=== PATIENT | female | born 1995 | race Caucasian/White ===

== ENCOUNTER 2017-03-24 14:57 | Inpatient (IN) | payer OTHER ==
--- NOTE | 2017-03-24 15:43 | Non Stress Test Report ---
Non Stress Test Datetime Report Generated by CPN: 03/24/2017 15:43 DEMOGRAPHIC EGA NST: 39.1 INDICATION Indication for Study: Other Indication for Study (NST) Other: LC MONITORING Monitor Explained: Monitor Explained; Test Explained; Patient Verbalized Understanding Time on Monitor: 03/24/2017 15:15 Time off Monitor: 03/24/2017 15:37 Time off Monitor: 03/24/2017 15:37 NST Duration: 22 NST INTERVENTIONS NST Interventions: None Physician Notified NST: P Arriola CNM BABY A: [id number] BABY A Movement : Present Contraction Frequency : 2-4 FHR Baseline : 130 Accelerations : 15X15 Decelerations : None Variability : Moderate 6-25bpm NST Review: Meets Criteria for Reactive NST NST Review and Verified By : Meli Cooper RNC NST Results: Reactive NST REPORT Report Trigger: Send Report
[2017-03-24 15:47] LABS: APPEARANCE,URINE CLOUDY; BILIRUBIN,URINE NEGATIVE (NEGATIVE); COLOR,URINE YELLOW; GLUCOSE, URINE NEGATIVE (NEGATIVE); KETONES,URINE NEGATIVE (NEGATIVE); LEUKOCYTE ESTERASE,URINE MODERATE (NEGATIVE); NITRITE,URINE NEGATIVE (NEGATIVE); PROTEIN,URINE NEGATIVE (NEGATIVE); URINE SPECIFIC GRAVITY 1.014; UROBILINOGEN,URINE NEGATIVE mg/dL (<2.0)
[2017-03-24 16:09] LABS: URINE AMPHETAMINES SCREEN NEGATIVE; URINE BARBITURATES SCREEN NEGATIVE; URINE BENZODIAZEPINES SCREEN NEGATIVE; URINE COCAINE SCREEN NEGATIVE; URINE MARIJUANA (THC) SCREEN NEGATIVE; URINE METHADONE SCREEN NEGATIVE; URINE PHENCYCLIDINE SCREEN NEGATIVE
[2017-03-24] MEDS ORDERED: HYDROXYZINE PAMOATE 50 MG CAPSULE ONE (16:40)
[2017-03-24] MEDS ORDERED: HYDROXYZINE PAMOATE 50 MG CAPSULE PO ONE (16:43)
[2017-03-24] MEDS ORDERED: PENICILLIN G-K 5 MILLION UNIT VIAL ONE (20:04)
[2017-03-24] MEDS ORDERED: PROMETHAZINE HCL INJ 25 MG/1 ML VIAL IV ONE (20:32)
[2017-03-24] MEDS ORDERED: NALBUPHINE HCL INJ 10 MG/1 ML AMPULE INJ ONE (20:32)
[2017-03-24] MEDS ORDERED: NALBUPHINE HCL INJ 10 MG/1 ML AMPULE ONE (20:35)
[2017-03-24] MEDS ORDERED: PROMETHAZINE HCL INJ 25 MG/1 ML VIAL ONE (20:35)
[2017-03-24] MEDS ORDERED: RINGERS SOLUTION,LACTATED 1,000 ML IV PRN (23:15)
[2017-03-24] MEDS ORDERED: RINGERS SOLUTION,LACTATED 1,000 ML IV ONE (23:15)
[2017-03-25] MEDS ORDERED: PENICILLIN G POTASSIUM 5,000,000 UNIT in DEXTROSE 5%-WATER 100 ML IV ONE (00:05)
[2017-03-25] MEDS ORDERED: OXYTOCIN/NORMAL SALINE 20 UNIT/1,000 ML RTUINJ ONE (00:16)
[2017-03-25] MEDS ORDERED: LIDOCAINE 1% INJ-PF (10 MG/ML) 30 ML SDV ONE (00:16)
[2017-03-25] MEDS ORDERED: MISOPROSTOL 0.2 MG TABLET ONE (00:16)
[2017-03-25] MEDS ORDERED: PENICILLIN G-K 5 MILLION UNIT VIAL IV PRN (00:20)
[2017-03-25] MEDS ORDERED: EPHEDRINE SULFATE INJ 50 MG/1 ML AMPULE ONE (00:22)
[2017-03-25] MEDS ORDERED: FENTANYL CITRATE INJ/PF 100 MCG/2 ML AMPUL ONE (00:22)
[2017-03-25] MEDS ORDERED: PHENYLEPHRINE HCL INJ/PF 10 MG/1 ML SDV ONE (00:22)
[2017-03-25] MEDS ORDERED: BUPIVACAINE HCL 0.25 % INJ/PF (2.5 MG/1 ML) 30 ML VIAL ONE (00:23)
[2017-03-25] MEDS ORDERED: FENTANYL/BUPIVACAINE/NS/PF 200 MCG/100 ML RTUINJ EPI ONE (00:23)
[2017-03-25] MEDS ORDERED: EPHEDRINE SULFATE INJ 50 MG/1 ML AMPULE IV ONE (00:26)
[2017-03-25] MEDS ORDERED: BENZOIN/ALOE VERA/STORAX/TOLU TINCTURE 60 ML TP PRN (00:26)
[2017-03-25] MEDS ORDERED: EPHEDRINE SULFATE INJ 50 MG/1 ML AMPULE IV PRN (00:26)
[2017-03-25] MEDS ORDERED: BUPIVACAINE HCL 0.25 % INJ/PF (2.5 MG/1 ML) 30 ML VIAL INFIL ONE (00:26)
[2017-03-25 00:45] LABS: HEMATOCRIT 35.9 % (36.0-47.0); MEAN CORPUSCULAR HEMOGLOBIN 28.4 pg (27.0-33.4); MEAN CORPUSCULAR HGB CONC 33.4 g/dL (32.0-36.0); MEAN CORPUSCULAR VOLUME 85 fl (80-97); PLATELET COUNT 264 10^3/uL (150-450); RED BLOOD COUNT 4.23 10^6/uL (3.72-5.28); RED CELL DISTRIBUTION WIDTH 13.8 % (11.5-14.0); WHITE BLOOD COUNT 20.8 10^3/uL (4.0-10.5)
[2017-03-25] MEDS ORDERED: ACETAMINOPHEN 325 MG TABLET PO ONE (01:01)
[2017-03-25] MEDS ORDERED: ACETAMINOPHEN 325 MG TABLET ONE (01:03)
[2017-03-25 01:07] LABS: ABSOLUTE LYMPHOCYTES# (MANUAL) 1.2 10^3/uL (0.5-4.7); ABSOLUTE MONOCYTES # (MANUAL) 0.4 10^3/uL (0.1-1.4); ABSOLUTE NEUTROPHILS# (MANUAL) 19.1 10^3/uL (1.7-8.2); BAND NEUTROPHILS % (MANUAL) 1 % (3-5); BASOPHILS % (MANUAL) 0 % (0-2); EOSINOPHILS % (MANUAL) 0 % (0-6); LYMPHOCYTES % (MANUAL) 6 % (13-45); MONOCYTES % (MANUAL) 2 % (3-13); SEGMENTED NEUTROPHILS % (MAN) 91 % (42-78); TOTAL CELLS COUNTED 100
[2017-03-25 01:08] LABS: PLATELET COMMENT ADEQUATE; RBC MORPHOLOGY COMMENT NORMO-CYTIC/CHROMIC; TOXIC GRANULATION SLIGHT; TOXIC VACUOLATION PRESENT
[2017-03-25] MEDS ORDERED: PENICILLIN G-K 5 MILLION UNIT VIAL ONE ×2 (03:28→07:56)
[2017-03-25] MEDS: FENTANYL/BUPIVACAINE/NS/PF 200 MCG/100 ML RTUINJ EPI PRN ×2 (03:40→07:53)
[2017-03-25] MEDS: PENICILLIN G POTASSIUM 2,500,000 UNIT in DEXTROSE 5%-WATER 50 ML IV SCH ×2 (04:08→08:01)
[2017-03-25] MEDS ORDERED: OXYTOCIN/NORMAL SALINE 20 UNIT/1,000 ML RTUINJ IV PRN ×2 (08:01→10:34)
--- NOTE | 2017-03-25 08:09 | L&D Progress Notes ---
PROGRESS NOTES Datetime Report Generated by CPN: 03/25/2017 08:08 PROGRESS NOTE Impression: Reassuring Heart Rate Procedures: Artificial ROM; Sterile Vag Exam Plan: Continue Present Management; Augmentation Informed Consent Obtained: Induction of Labor Vital Signs : Reviewed Comment: Comfortable with epidural minimal cervical change AROM, clear Pitocin per protocol Continue pcn VAGINAL EXAM Dilatation: 3 Dilatation: 7 Effacement: 100 Effacement: 90 Station: -1 Station: 0 Contractions: irregular Contractions: irregular MEMBRANES Membranes: Intact Membranes: Ruptured Amniotic Fluid Color: Clear FETUS A FHR - Baseline: 120 Monitoring: External US Variability: Moderate 6-25bpm Accelerations: 15X15 Decelerations: None Estimated Weight (gm): 3400 Presentation: Vertex SIGNATURE SIGNATURE: [id number];[id number] SIGNATURE: [id number] Assignment: Jacquie Ghosh MD Signature: with User ID: [email or web address] : with User ID: [email or web address]
[2017-03-25] MEDS ORDERED: DIBUCAINE 1% OINTMENT 28 GM TP PRN (10:34)
[2017-03-25] MEDS ORDERED: ZOLPIDEM TARTRATE 5 MG TABLET PO PRN (10:34)
[2017-03-25] MEDS ORDERED: BENZOCAINE/MENTHOL AEROSOL SPRAY 56 ML TOP PRN (10:34)
[2017-03-25] MEDS ORDERED: ACETAMINOPHEN WITH CODEINE #3 TABLET PO PRN ×2 (10:34)
[2017-03-25] MEDS ORDERED: MEASLES,MUMPS&RUBELLA VACC/PF 0.5 ML VIAL SUBCUT PRN (10:34)
[2017-03-25] MEDS ORDERED: DIPH/PERTUSS(ACELL)/TETANUS VAC/PF 0.5 ML SYR (>=10YO) IM PRN (10:34)
--- NOTE | 2017-03-25 10:48 | Warning Signs in Babies ---
VOD Warning Signs Datetime Report Generated by [facility]: 03/25/2017 10:48 VOD#608 -Warning Signs in Babies: Viewed with Parent(s)/Family (03/25/2017 10:47:Raven Hernandes RN)
--- NOTE | 2017-03-25 12:23 | Delivery Summary ---
Del Sum A-C Datetime Report Generated by CPN: 03/25/2017 12:22 DELIVERY PERSONNEL DELIVERY PERSONNEL: [id number] Delivery Doctor:: Tracy Dove CNM Labor and Delivery Nurse:: Raven Hernandes RNmanager sales support Nurse:: YUE Mdarigal Nursery Nurse:: Torri Mena RN Talent Development Director/EQUIPMENT SERVICE ENGINEER: ST Leyla Talent Development Director/EQUIPMENT SERVICE ENGINEER: Linda Asencio CNA II MATERNAL INFORMATION Delivery Anesthesia: Epidural Medications After Delivery: Pitocin Bolus-Please Comment Meds After Delivery Comment: pitocin 20 units in 1000 ml NS bolusing after delivery of placenta as orderd Estimated Blood Loss (ml): 300 Maternal Complications: None Provider Comments: of viable male infant over intact perineum. Head delivered, loose nuchal noted, delivered through, shoulders and body followed with ease. with spontaneous cry and respirations, to maternal abdomen, cord clamped X2 after 2 min delay, cut free by pts mary. Spontaneous delivery of placenta via duarte mechanism, appears intact, 3 VC. superficial right labial laceration repaired as above. Hemostasis acheived with external fundal massage and IV pitocin. Mother and infant in stable condition, routine pp care. LABOR SUMMARY EDC: 03/30/2017 00:00 No. Babies in Womb: 1 Attempted: No Labor Anesthesia: Epidural LABOR INFORMATION Reason for Induction: Not Applicable Onset of Labor: 03/24/2017 19:25 Complete Dilatation: 03/25/2017 09:34 Oxytocin: Augmentation Group B Beta Strep: positive Antibiotics # of Doses: 3 Antibiotics Time of Last Dose: 0017/0410/0801 Name of Antibiotic Given: PCN Steroids Given: None Reason Steroids Not Administered: Not Applicable MEMBRANES Membranes Rupture Method: Artificial Rupture of Membranes: 03/25/2017 07:38 Length of Rupture (hr): 2.77 Amniotic Fluid Color: Clear Amniotic Fluid Amount: Small Amniotic Fluid Odor: Normal STAGES OF LABOR Stage 1 hr: 14 Stage 1 min: 9 Stage 2 hr: 0 Stage 2 min: 50 Stage 3 hr: 0 Stage 3 min: 3 Total Time in Labor hr: 15 Total Time in Labor min: 2 VAGINAL DELIVERY Episiotomy: None Laceration #1: Perineal Laceration Extension #1: N/A Laceration #2: None Other Laceration: superficial right labial Laceration Repair: Yes Laceration Repair Note: repaired with 2 single sutures of 3-0 chromic using epidural for anesthesia Sponge Count Correct: N/A Sharps Count Correct: N/A CSECTION DELIVERY Primary Indication: N/A Secondary Indication: N/A CSection Incidence: N/A Labor: N/A Elective: N/A CSection Incision: N/A BABY A INFORMATION Delivery Date/Time: 03/25/2017 10:24 Method of Delivery: Vaginal Born in Route : No : N/A Forceps: N/A Vacuum Extraction: N/A Shoulder Dystocia : No PRESENTATION/POSITION BABY A Presentation: Cephalic Cephalic Presentation: Vertex Vertex Position: Right Occipital Anterior Breech Presentation: N/A PLACENTA INFORMATION BABY A Placenta Delivery Time : 03/25/2017 10:27 Placenta Method of Delivery: Spontaneous Placenta Status: Delivered SCORES BABY A Heart Rate 1 min: >100 bpm Resp Effort 1 min: Good Cry Reflex Irritability 1 min: Cough or Sneeze or Pulls Away Muscle Tone 1 min: Active Motion Color 1 min: Body [place], Extremities Blue Resuscitation Effort 1 min: Tactile Stimulation SCORE 1 MIN: 9 Heart Rate 5 min: >100 bpm Resp Effort 5 min: Good Cry Reflex Irritability 5 min: Cough or Sneeze or Pulls Away Muscle Tone 5 min: Active Motion Color 5 min: Body [place], Extremities Blue Resuscitation Effort 5 min: N/A SCORE 5 MIN: 9 Resuscitation Effort 10 min: N/A INFANT INFORMATION BABY A Gestational Age at Delivery: 39.2 Gestational Status: Full Term- 39- 40.6 Weeks Outcome : Liveborn Condition : Stable Sex: Male IDENTIFICATION BABY A Verification Date/Time: 03/25/2017 11:05 ID Band Number: [id number] Mother's Name Verified: Yes RN Verifying Infant: R Cecilio RN, K Breezy RN WEIGHT/LENGTH BABY A Infant Birthweight (gm): 3920 Infant Weight (lb): 8 Infant Weight (oz): 10 Infant Length (in): 20.50 Infant Length (cm): 52.07 CORD INFORMATION BABY A No. Cord Vessels: 3 Nuchal Cord : Around Neck x1, Loose Cord Blood Taken: Yes-For Eval (Mom's Blood Type - or O+) Infant Suction: Mouth; Nose ASSESSMENT BABY A Complications: None Physical Findings at Delivery: Caput Succedaneum Infant Respirations: Appears Normal Skin to Skin: Yes Skin to Skin Time (min): 60 Cone Winder/ALS Called : No Infant Care By: Teena Mena RN Transferred To: Remains with Mother BABY B INFORMATION : N/A SIGNATURES Assignment: Jacquie Ghosh MD Signature: with User ID: Ole : with User ID: [email or web address]
--- NOTE | 2017-03-25 12:49 | Admission Physical ---
Datetime Report Generated by CPN: 03/25/2017 12:49 CURRENT ADMISSION Hx Assessment: The History has been Reviewed and is Current Chief Complaint: Uterine Contractions Indication for Induction: Other Indication for Induction: Term, Intrauterine ; Intact Membranes Indication for Induction- Other: term, gbs +, advance cervical dilation Admit Impression- Other: labor augmentation, prodromal labor Admit Plan: Admit to Unit; Initiate Labor Augmentation Protocol ALLERGIES Medication Allergies: No Medication Allergies: No Known Allergies (03/24/2017) Latex: No Latex Allergies OBSTETRICAL HISTORY EDC: 03/30/2017 00:00 : 1 Para: 0 Term: 0 : 0 SAB: 0 IAB: 0 Ectopic: 0 Livin Cesareans: 0 VBACs: 0 Multiple Births: 0 Gestational Diabetes: No Rh Sensitization: No Incompetent Cervix: No JAMIE: No Infertility: No ART Treatment: No Uterine Anomaly: No IUGR: No Hx Previous C/S: No Macrosomia: No Hx Loss/Stillborn: No PIH: No Hx : No Placenta Previa/Abruption: No Depression/PP Depression: No PTL/PROM: No Post Hemorrhage: No Current Procedures: Ultrasound; NST Obstetrical History Comments: G1: current SEE RECORDS Alcohol: No Marijuana : No Cocaine: No Other Illicit Drugs: No Cigarettes: Never Smoker. [id number] MEDICAL HISTORY Diabetes: No Blood Transfusion: No Pulmonary Disease (Asthma, TB): No Breast Disease: No Hypertension: No Machinist Helper Surgery: No Heart Disease: No Hosp/Surgery: Yes Autoimmune Disorder: No Anesthetic Complications: No Kidney Disease: No Abnormal Pap Smear: No Neuro/Epilepsy: No Psychiatric Disorders: No Other Medical Diseases: No Hepatitis/Liver Disease: No Significant Family History: No Varicosities/Phlebitis: No Trauma/Violence : No Thyroid Dysfunction: No Medical History Comments: tonsillectomy INFECTIOUS HISTORY Gonorrhea: No Genital Herpes: No Chlamydia: No Tuberculosis: No Syphilis: No Hepatitis: No HIV/AIDS Exposure: No Rash or Viral Illness: No HPV: No PHYSICAL EXAM General: Normal HEENT: Normal Neurologic: Normal Thyroid: Deferred Heart: Normal Lungs: Normal Breast: Normal Back: Normal Abdomen: Normal Genitourinary Exam: Normal Extremities: Normal DTRs: Normal Pelvic Type: Adequate Vital Signs: Reviewed VAGINAL EXAM Dilatation: 3 Dilatation: 7 Effacement: 100 Effacement: 90 Station: -1 Station: 0 Contraction Comments: irregular Contraction Comments: irregular MEMBRANES Membranes: Intact Membranes: Ruptured Amniotic Fluid Color: Clear FETUS A EGA: 39.2 Monitoring: External US FHR- Baseline: 120 Variability: Moderate 6-25bpm Accelerations: 15X15 Decelerations: None FHR Category: Category I Estimated Weight (gm): 3400 Presentation: Vertex Admit Comment: Pt presented with ctx, was given theraputic rest made change from 3-6. Will admit for labor augmentation. GBS +, pcn Pt may have epidural Uncomplicated . See hx. PLANS FOR LABOR AND DELIVERY Labor and Delivery: None Pain Management: Epidural Feeding Preference: Breast Benefit of Breast Feed Discussed: Yes Circumcision: No INFORMED CONSENT Informed Consent Obtained: Induction of Labor Assignment: Jacquie Ghosh MD Signature: with User ID: [email or web address] : with User ID: [email or web address]
[2017-03-25] MEDS ORDERED: INFLUENZA ADLT QUAD (36MOS+) 2017-18 VAC 0.5 ML SYR IM PRN (13:21)
[2017-03-25] MEDS: IBUPROFEN 800 MG TABLET PO SCH ×2 (14:48→22:59)
[2017-03-25] MEDS: DOCUSATE SODIUM 100 MG CAPSULE PO SCH (18:50)
[2017-03-25] MEDS: FERROUS SULFATE 325 MG TABLET PO SCH (18:51)
[2017-03-26] MEDS: IBUPROFEN 800 MG TABLET PO SCH ×3 (06:20→22:26)
[2017-03-26 07:27] LABS: HEMATOCRIT 28.8 % (36.0-47.0); MEAN CORPUSCULAR HEMOGLOBIN 28.9 pg (27.0-33.4); MEAN CORPUSCULAR HGB CONC 33.9 g/dL (32.0-36.0); MEAN CORPUSCULAR VOLUME 85 fl (80-97); PLATELET COUNT 214 10^3/uL (150-450); RED BLOOD COUNT 3.38 10^6/uL (3.72-5.28); RED CELL DISTRIBUTION WIDTH 14.4 % (11.5-14.0); WHITE BLOOD COUNT 15.2 10^3/uL (4.0-10.5)
[2017-03-26 07:32] LABS: HEMOGLOBIN 9.8 g/dL (12.0-15.5)
--- NOTE | 2017-03-26 09:14 | PDOC PROGRESS REPORT ---
Subjective-OB Subjective: Post Delivery Day: 1 23 year old. Denies any needs at this time, voiding without difficulty, state lochia is stable, pain well controlled, bonding with baby well. Physical Exam (OB) Vital Signs: Temp Pulse Resp BP Pulse Ox 96.6 F L 72 17 134/80 H 100 03/26/17 07:41 03/26/17 07:41 03/26/17 07:41 03/26/17 07:41 03/26/17 07:41 Intake & Output 03/25/17 03/26/17 03/27/17 06:59 06:59 06:59 Weight 89.2 kg - Lochia Lochia Amount: Scant < 10 ml Lochia Color: Rubra/Red - Abdomen Description: Soft, Flat Hernia Present: No Fundal Description: Firm, Midline Fundal Height: u/u - u/2 Objective-Diagnostic Laboratory: 03/26/17 06:58 03/26/17 06:58 WBC 15.2 H RBC 3.38 L Hgb 9.8 L D Hct 28.8 L MCV 85 MCH 28.9 MCHC 33.9 RDW 14.4 H Plt Count 214 Assessment and Plan(PN) - Assessment and Plan (1) Vaginal delivery Is this a current diagnosis for this admission?: Yes Plan: routine pp care (2) Acute blood loss anemia Is this a current diagnosis for this admission?: Yes Plan: ferrous sulfate increase dietary iron - Time Spent with Patient Time with patient: Less than 15 minutes Critical Time spent with patient: Less than 15 minutes Medications reviewed and adjusted accordingly: Yes - Disposition Anticipated Discharge: Home Within: within 24 hours
[2017-03-26] MEDS: PRENATAL VITAMIN W DHA CAPSULE PO SCH (10:28)
[2017-03-26] MEDS: DOCUSATE SODIUM 100 MG CAPSULE PO SCH ×2 (10:29→18:45)
[2017-03-26] MEDS: SENNOSIDES/DOCUSATE 8.6-50 MG 1 EACH TABLET PO SCH (10:29)
[2017-03-26] MEDS: FERROUS SULFATE 325 MG TABLET PO SCH ×2 (10:29→18:45)
[2017-03-26 22:13] VITALS: BP 129/85
[2017-03-27] MEDS: IBUPROFEN 800 MG TABLET PO SCH (05:29)
--- NOTE | 2017-03-27 08:53 | PDOC DISCHARGE SUMMARY ---
Final Diagnosis Discharge Date: 03/27/17 - Final Diagnosis (1) Vaginal delivery Is this a current diagnosis for this admission?: Yes (2) Acute blood loss anemia Is this a current diagnosis for this admission?: Yes Discharge Data - Discharge Medication Prescriptions: Docusate Sodium [Colace 100 mg Capsule] 100 mg PO BID #60 capsule Ferrous Sulfate [Feosol 325 mg Tablet] 325 mg PO BID #60 tablet Ibuprofen [Motrin 800 mg Tablet] 800 mg PO Q8 #60 tablet Home Medications: Vit,Calc76/Iron/Folic [Pnv 29-1 Tablet] 1 tab PO DAILY 03/24/17 Docusate Sodium [Colace 100 mg Capsule] 100 mg PO BID #60 capsule 03/27/17 Ferrous Sulfate [Feosol 325 mg Tablet] 325 mg PO BID #60 tablet 03/27/17 Ibuprofen [Motrin 800 mg Tablet] 800 mg PO Q8 #60 tablet 03/27/17 Gestational Age: 39.2 Reason(s) for Admission: Onset of Labor, Group B Strep Positive Procedures: NST Intrapartum Procedure(s): Spontaneous Vaginal Delivery Complication(s): Laceration-Periurethral - [place] Data Baby 1 Male at 1 minute: 9 at 5 minutes: 9 Weight: 3920 kg Home with Mother: Yes Complications: No - Diagnosis Test Laboratory: Temp Pulse Resp BP Pulse Ox 97.6 F 94 18 129/85 H 98 03/27/17 08:16 03/27/17 08:16 03/27/17 08:16 03/26/17 20:30 03/27/17 08:16 03/24/17 03/25/17 03/26/17 15:10 00:33 06:58 RBC 4.23 3.38 L Hgb 12.0 9.8 L D Hct 35.9 L 28.8 L Urine Opiates Screen NEGATIVE - Discharge information/Instructions Discharge Activity: Activity As Tolerated, Pelvic Rest, No tub bath Discharge Diet: Regular Disposition: HOME, SELF-CARE Follow up with: [facility] in: 4, Weeks
[2017-03-27] MEDS: FERROUS SULFATE 325 MG TABLET PO SCH (10:30)
[2017-03-27] MEDS: DOCUSATE SODIUM 100 MG CAPSULE PO SCH (10:30)
[2017-03-27] MEDS: PRENATAL VITAMIN W DHA CAPSULE PO SCH (10:30)
[2017-03-27] MEDS: SENNOSIDES/DOCUSATE 8.6-50 MG 1 EACH TABLET PO SCH (10:30)
--- NOTE | 2017-03-28 17:09 | Delivery Summary ---
Del Sum A-C Datetime Report Generated by CPN: 03/28/2017 17:08 DELIVERY PERSONNEL DELIVERY PERSONNEL: [id number] Delivery Doctor:: Tracy Dove CNM Labor and Delivery Nurse:: Raven Hernandes RNprogrammable logic controller assembler Nurse:: YUE Madrigal Nursery Nurse:: Torri Mena RN Stereo Equipment Installer/SPOOL WORKER: ST Leyla Stereo Equipment Installer/SPOOL WORKER: Linda Asencio CNA II MATERNAL INFORMATION Delivery Anesthesia: Epidural Medications After Delivery: Pitocin Bolus-Please Comment Meds After Delivery Comment: pitocin 20 units in 1000 ml NS bolusing after delivery of placenta as orderd Estimated Blood Loss (ml): 300 Maternal Complications: None Provider Comments: of viable male infant over intact perineum. Head delivered, loose nuchal noted, delivered through, shoulders and body followed with ease. with spontaneous cry and respirations, to maternal abdomen, cord clamped X2 after 2 min delay, cut free by pts mary. Spontaneous delivery of placenta via duarte mechanism, appears intact, 3 VC. superficial right labial laceration repaired as above. Hemostasis acheived with external fundal massage and IV pitocin. Mother and infant in stable condition, routine pp care. LABOR SUMMARY EDC: 03/30/2017 00:00 No. Babies in Womb: 1 Attempted: No Labor Anesthesia: Epidural LABOR INFORMATION Reason for Induction: Not Applicable Onset of Labor: 03/24/2017 19:25 Complete Dilatation: 03/25/2017 09:34 Oxytocin: Augmentation Group B Beta Strep: positive Antibiotics # of Doses: 3 Antibiotics Time of Last Dose: 0017/0410/0801 Name of Antibiotic Given: PCN Steroids Given: None Reason Steroids Not Administered: Not Applicable MEMBRANES Membranes Rupture Method: Artificial Rupture of Membranes: 03/25/2017 07:38 Length of Rupture (hr): 2.77 Amniotic Fluid Color: Clear Amniotic Fluid Amount: Small Amniotic Fluid Odor: Normal STAGES OF LABOR Stage 1 hr: 14 Stage 1 min: 9 Stage 2 hr: 0 Stage 2 min: 50 Stage 3 hr: 0 Stage 3 min: 3 Total Time in Labor hr: 15 Total Time in Labor min: 2 VAGINAL DELIVERY Episiotomy: None Laceration #1: Perineal Laceration Extension #1: N/A Laceration #2: None Other Laceration: superficial right labial Laceration Repair: Yes Laceration Repair Note: repaired with 2 single sutures of 3-0 chromic using epidural for anesthesia Sponge Count Correct: N/A Sharps Count Correct: N/A CSECTION DELIVERY Primary Indication: N/A Secondary Indication: N/A CSection Incidence: N/A Labor: N/A Elective: N/A CSection Incision: N/A BABY A INFORMATION Delivery Date/Time: 03/25/2017 10:24 Method of Delivery: Vaginal Born in Route : No : N/A Forceps: N/A Vacuum Extraction: N/A Shoulder Dystocia : No PRESENTATION/POSITION BABY A Presentation: Cephalic Cephalic Presentation: Vertex Vertex Position: Right Occipital Anterior Breech Presentation: N/A PLACENTA INFORMATION BABY A Placenta Delivery Time : 03/25/2017 10:27 Placenta Method of Delivery: Spontaneous Placenta Status: Delivered SCORES BABY A Heart Rate 1 min: >100 bpm Resp Effort 1 min: Good Cry Reflex Irritability 1 min: Cough or Sneeze or Pulls Away Muscle Tone 1 min: Active Motion Color 1 min: Body [place], Extremities Blue Resuscitation Effort 1 min: Tactile Stimulation SCORE 1 MIN: 9 Heart Rate 5 min: >100 bpm Resp Effort 5 min: Good Cry Reflex Irritability 5 min: Cough or Sneeze or Pulls Away Muscle Tone 5 min: Active Motion Color 5 min: Body [place], Extremities Blue Resuscitation Effort 5 min: N/A SCORE 5 MIN: 9 Resuscitation Effort 10 min: N/A INFANT INFORMATION BABY A Gestational Age at Delivery: 39.2 Gestational Status: Full Term- 39- 40.6 Weeks Outcome : Liveborn Condition : Stable Sex: Male IDENTIFICATION BABY A Verification Date/Time: 03/25/2017 11:05 ID Band Number: [id number] Mother's Name Verified: Yes RN Verifying Infant: R Cecilio RN, K Breezy RN WEIGHT/LENGTH BABY A Infant Birthweight (gm): 3920 Infant Weight (lb): 8 Infant Weight (oz): 10 Infant Length (in): 20.50 Infant Length (cm): 52.07 CORD INFORMATION BABY A No. Cord Vessels: 3 Nuchal Cord : Around Neck x1, Loose Cord Blood Taken: Yes-For Eval (Mom's Blood Type - or O+) Infant Suction: Mouth; Nose ASSESSMENT BABY A Complications: None Physical Findings at Delivery: Caput Succedaneum Infant Respirations: Appears Normal Skin to Skin: Yes Skin to Skin Time (min): 60 Combination Worker/ALS Called : No Infant Care By: Teena Mena RN Transferred To: Remains with Mother BABY B INFORMATION : N/A SIGNATURES Assignment: Jacquie Ghosh MD Signature: with User ID: Ole : with User ID: [email or web address]
== END 2017-03-27 13:00 | disposition home or self-care (01) | DRG 775 ==
LOC: LC 14:57 → LR 20:36 → OBSVTOIN 20:36 → 2S 03-25 12:47
PROVIDERS: ADMIT Obstetrics & Gynecology; ATTEND Obstetrics & Gynecology
PROC: 10E0XZZ Delivery of Products of Conception, External Approach (ICD-10-PCS; principal; 2017-03-25)
PROC: 0HQ9XZZ Repair Perineum Skin, External Approach (ICD-10-PCS; 2017-03-25)
DX: O99.824 Streptococcus B carrier state complicating childbirth (principal); D62 Acute posthemorrhagic anemia; O69.81X0 Labor and delivery complicated by cord around neck, without compression, not applicable or unspecified; O90.81 Anemia of the puerperium; O70.0 First degree perineal laceration during delivery; Z3A.39 39 weeks gestation of pregnancy; Z37.0 Single live birth
CPT/HCPCS: 36415; 80307; 81005; 85025; 85027; 86592; 86850; 86900; 86901; 90686; 94760; J2300; J2370; J2540; J2550; J2590; J3010; J3490

== ENCOUNTER 2019-03-10 07:25 | Inpatient (IN) | payer OTHER ==
[2019-03-10] MEDS ORDERED: PENICILLIN G POTASSIUM 5,000,000 UNIT in DEXTROSE 5%-WATER 100 ML IV ONE (08:48)
[2019-03-10] MEDS ORDERED: RINGERS SOLUTION,LACTATED 1,000 ML IV ONE (08:48)
[2019-03-10] MEDS ORDERED: RINGERS SOLUTION,LACTATED 1,000 ML IV PRN (08:48)
[2019-03-10 09:57] LABS: ABSOLUTE LYMPHOCYTES (AUTO) 1.7 10^3/uL (0.5-4.7); ABSOLUTE MONOCYTES (AUTO) 0.6 10^3/uL (0.1-1.4); ABSOLUTE NEUT (AUTO) 12.5 10^3/uL (1.7-8.2); BASOPHILS % (AUTO) 0.3 % (0-2); EOSINOPHILS % (AUTO) 0.2 % (0-6); HEMATOCRIT 33.7 % (36.0-47.0); HEMOGLOBIN 11.2 g/dL (12.0-15.5); LYMPHOCYTES % (AUTO) 11.5 % (13-45); MEAN CORPUSCULAR HEMOGLOBIN 24.8 pg (27.0-33.4); MEAN CORPUSCULAR HGB CONC 33.1 g/dL (32.0-36.0); MEAN CORPUSCULAR VOLUME 75 fl (80-97); MONOCYTES % (AUTO) 3.9 % (3-13); PLATELET COUNT 279 10^3/uL (150-450); RED CELL DISTRIBUTION WIDTH 16.6 % (11.5-14.0); SEGMENTED NEUTROPHILS % (AUTO) 84.1 % (42-78); TOTAL CELLS COUNTED % (AUTO) 100 %; WHITE BLOOD COUNT 14.9 10^3/uL (4.0-10.5)
--- NOTE | 2019-03-10 11:35 | Warning Signs in Babies ---
VOD Warning Signs Datetime Report Generated by [facility]: 03/10/2019 11:35 VOD#608 -Warning Signs in Babies: Viewed with Parent(s)/Family (03/10/2019 10:55:Nata Trujillo RN)
[2019-03-10] MEDS ORDERED: PSEUDOEPHEDRINE HCL 30 MG TABLET PO PRN (12:06)
[2019-03-10] MEDS ORDERED: PROMETHAZINE HCL INJ 25 MG/1 ML VIAL IV PRN (12:06)
[2019-03-10] MEDS ORDERED: ACETAMINOPHEN WITH CODEINE #3 TABLET PO PRN ×2 (12:06)
[2019-03-10] MEDS ORDERED: ACETAMINOPHEN 325 MG TABLET PO PRN (12:06)
[2019-03-10] MEDS ORDERED: GLYCERIN/WITCH HAZEL LEAF 1 EACH MED..WIPE TP PRN (12:06)
[2019-03-10] MEDS ORDERED: DIPH/PERTUSS(ACELL)/TETANUS VAC/PF 0.5 ML SYR (>=10YO) IM PRN (12:06)
[2019-03-10] MEDS ORDERED: ZOLPIDEM TARTRATE 5 MG TABLET PO PRN (12:06)
[2019-03-10] MEDS ORDERED: NA PHOS,M-B/NA PHOS,DI-BA (ADULT) 133 ML ENEMA PR PRN (12:06)
[2019-03-10] MEDS ORDERED: BENZOCAINE/MENTHOL AEROSOL SPRAY 56 ML TOP PRN (12:06)
[2019-03-10] MEDS ORDERED: OXYTOCIN/NORMAL SALINE 20 UNIT/1,000 ML RTUINJ IV PRN (12:06)
[2019-03-10] MEDS ORDERED: DIBUCAINE 1% OINTMENT 28 GM TP PRN (12:06)
[2019-03-10] MEDS ORDERED: MAGNESIUM HYDROXIDE SUSP 30 ML UDCUP PO PRN (12:06)
[2019-03-10] MEDS ORDERED: PROMETHAZINE HCL 25 MG SUPP.RECT PR PRN (12:06)
[2019-03-10] MEDS ORDERED: DIPHENHYDRAMINE HCL 25 MG CAPSULE PO PRN (12:06)
[2019-03-10] MEDS ORDERED: PROMETHAZINE HCL 25 MG TABLET PO PRN (12:06)
[2019-03-10] MEDS ORDERED: MEASLES,MUMPS&RUBELLA VACC/PF 0.5 ML VIAL SUBCUT PRN (12:06)
[2019-03-10] MEDS ORDERED: BENZOCAINE/MENTHOL AEROSOL SPRAY 56 ML ONE (12:18)
--- NOTE | 2019-03-10 12:20 | Delivery Summary ---
Del Sum A-C Datetime Report Generated by CPN: 03/10/2019 12:20 DELIVERY PERSONNEL DELIVERY PERSONNEL: [id number] Delivery Doctor:: Mahsa German MD Labor and Delivery Nurse:: Nata Trujillo RNparcel post weigher Nurse:: Leanna Perez RN Piece Dyer/SENIOR PRODUCT MANAGER: Tiffanie Green, ST MATERNAL INFORMATION Delivery Anesthesia: Epidural Medications After Delivery: Pitocin Bolus-Please Comment Meds After Delivery Comment: Pitocin 20 units in 1000mL NS Delivery QBL: 200 Maternal Complications: None LABOR SUMMARY EDC: 03/06/2019 00:00 No. Babies in Womb: 1 Attempted: No Labor Anesthesia: Epidural LABOR INFORMATION Reason for Induction: Not Applicable Onset of Labor: 03/10/2019 06:30 Complete Dilatation: 03/10/2019 10:19 Oxytocin: N/A Group B Beta Strep: positive Antibiotics # of Doses: 1 Antibiotics Time of Last Dose: 920 Name of Antibiotic Given: penicillin Steroids Given: None Reason Steroids Not Administered: Not Applicable MEMBRANES Membranes Rupture Method: Spontaneous Rupture of Membranes: 03/10/2019 10:19 Length of Rupture (hr): 0.32 Amniotic Fluid Color: Clear Amniotic Fluid Amount: Large Amniotic Fluid Odor: None STAGES OF LABOR Stage 1 hr: 3 Stage 1 min: 49 Stage 2 hr: 0 Stage 2 min: 19 Stage 3 hr: 0 Stage 3 min: 4 Total Time in Labor hr: 4 Total Time in Labor min: 12 VAGINAL DELIVERY Episiotomy: None Laceration #1: None Laceration Extension #1: N/A Laceration Repair: Not Applicable Sponge Count Correct: Yes Sharps Count Correct: Yes CSECTION DELIVERY Primary Indication: N/A Secondary Indication: N/A CSection Incidence: N/A Labor: N/A Elective: N/A CSection Incision: N/A BABY A INFORMATION Delivery Date/Time: 03/10/2019 10:38 Method of Delivery: Vaginal Born in Route : No : N/A Forceps: N/A Vacuum Extraction: N/A Shoulder Dystocia : No PRESENTATION/POSITION BABY A Presentation: Cephalic Cephalic Presentation: Vertex Vertex Position: Right Occipital Anterior Breech Presentation: N/A PLACENTA INFORMATION BABY A Placenta Delivery Time : 03/10/2019 10:42 Placenta Method of Delivery: Spontaneous Placenta Status: Delivered SCORES BABY A Heart Rate 1 min: >100 bpm Resp Effort 1 min: Good Cry Reflex Irritability 1 min: Cough or Sneeze or Pulls Away Muscle Tone 1 min: Active Motion Color 1 min: Blue/Pale Resuscitation Effort 1 min: Tactile Stimulation SCORE 1 MIN: 8 Heart Rate 5 min: >100 bpm Resp Effort 5 min: Good Cry Reflex Irritability 5 min: Cough or Sneeze or Pulls Away Muscle Tone 5 min: Active Motion Color 5 min: Body [place], Extremities Blue Resuscitation Effort 5 min: N/A SCORE 5 MIN: 9 INFORMATION BABY A Gestational Age at Delivery: 40.4 Gestational Status: Full Term- 39- 40.6 Weeks Infant Outcome : Liveborn Condition : Stable Sex: Male IDENTIFICATION BABY A Infant Verification Date/Time: 03/10/2019 10:56 ID Band Number: [id number] Mother's Name Verified: Yes Infant RN Verifying Infant: Jen Trujillo RN, HRaffi Guallpas RN WEIGHT/LENGTH BABY A Birthweight (gm): 3390 Infant Weight (lb): 7 Weight (oz): 8 Infant Length (in): 20.00 Length (cm): 50.80 CORD INFORMATION BABY A No. Cord Vessels: 3 Nuchal Cord : N/A Cord Blood Taken: Yes-For Eval (Mom's Blood Type - or O+) Suction: None ASSESSMENT BABY A Infant Complications: None Physical Findings at Delivery: Within Normal Limits Respirations: Appears Normal Urology Physician Assistant/ALS Called : No Care By: H. Chris RN Transferred To: Remains with Mother BABY B INFORMATION : N/A
[2019-03-10] MEDS ORDERED: PENICILLIN G POTASSIUM 2,500,000 UNIT in DEXTROSE 5%-WATER 50 ML IV SCH (12:49)
[2019-03-10] MEDS: IBUPROFEN 800 MG TABLET PO SCH ×2 (17:54→22:21)
[2019-03-10] MEDS: FERROUS SULFATE 325 MG TABLET PO SCH (17:55)
[2019-03-10] MEDS: DOCUSATE SODIUM 100 MG CAPSULE PO SCH (17:55)
[2019-03-10 18:25] LABS: URINE AMPHETAMINES SCREEN NEGATIVE; URINE BARBITURATES SCREEN NEGATIVE; URINE BENZODIAZEPINES SCREEN NEGATIVE; URINE COCAINE SCREEN NEGATIVE; URINE MARIJUANA (THC) SCREEN NEGATIVE; URINE METHADONE SCREEN NEGATIVE; URINE PHENCYCLIDINE SCREEN NEGATIVE
[2019-03-10 18:41] LABS: APPEARANCE,URINE CLEAR; BILIRUBIN,URINE NEGATIVE (NEGATIVE); COLOR,URINE STRAW; GLUCOSE, URINE NEGATIVE (NEGATIVE); KETONES,URINE NEGATIVE (NEGATIVE); LEUKOCYTE ESTERASE,URINE TRACE (NEGATIVE); NITRITE,URINE NEGATIVE (NEGATIVE); PROTEIN,URINE NEGATIVE (NEGATIVE); URINE SPECIFIC GRAVITY 1.002; UROBILINOGEN,URINE NEGATIVE mg/dL (<2.0)
[2019-03-10] MEDS: FAMOTIDINE 20 MG TABLET PO SCH (22:20)
[2019-03-11 06:26] LABS: HEMATOCRIT 28.7 % (36.0-47.0); HEMOGLOBIN 9.4 g/dL (12.0-15.5); MEAN CORPUSCULAR HGB CONC 32.9 g/dL (32.0-36.0); MEAN CORPUSCULAR VOLUME 76 fl (80-97); PLATELET COUNT 231 10^3/uL (150-450); RED BLOOD COUNT 3.78 10^6/uL (3.72-5.28); RED CELL DISTRIBUTION WIDTH 16.5 % (11.5-14.0); WHITE BLOOD COUNT 12.8 10^3/uL (4.0-10.5)
[2019-03-11] MEDS: IBUPROFEN 800 MG TABLET PO SCH ×3 (06:45→21:32)
[2019-03-11] MEDS: FAMOTIDINE 20 MG TABLET PO SCH ×2 (09:52→21:32)
[2019-03-11] MEDS: PRENATAL VITAMIN W DHA CAPSULE PO SCH (09:52)
[2019-03-11] MEDS: FERROUS SULFATE 325 MG TABLET PO SCH ×2 (09:52→17:49)
[2019-03-11] MEDS: DOCUSATE SODIUM 100 MG CAPSULE PO SCH ×2 (09:52→17:49)
[2019-03-11] MEDS: SENNOSIDES/DOCUSATE 8.6-50 MG 1 EACH TABLET PO SCH (09:53)
--- NOTE | 2019-03-11 10:27 | PDOC PROGRESS REPORT ---
Subjective-OB Progress Note for:: 03/11/19 Subjective: Pt doing well, no concerns. She reports light bleeding, reg diet and voiding without difficulty. Physical Exam (OB) Vital Signs: Temp Pulse Resp BP Pulse Ox 97.8 F 72 18 132/85 H 100 03/11/19 07:33 03/11/19 07:33 03/11/19 07:33 03/11/19 07:33 03/11/19 07:33 Intake & Output 03/10/19 03/11/19 03/12/19 06:59 06:59 06:59 Weight 85 kg - PIH/Pre-Eclampsia DTR's: 2 + Clonus: Negative Headache: Absent Epigastric Pain: No Visual Changes: No - Lochia Lochia Amount: Scant < 10 ml Lochia Color: Rubra/Red - Abdomen Description: Soft Hernia Present: No Fundal Description: Firm Fundal Height: u/u - u/2 Objective-Diagnostic Laboratory: 03/11/19 06:01 03/10/19 03/10/19 03/11/19 09:30 17:30 06:01 WBC 12.8 H RBC 3.78 Hgb 9.4 L Hct 28.7 L MCV 76 L MCH 25.0 L MCHC 32.9 RDW 16.5 H Plt Count 231 Urine Color STRAW Urine Appearance CLEAR Urine pH 7.0 Ur Specific [place] 1.002 Urine Protein NEGATIVE Urine Glucose (UA) NEGATIVE Urine Ketones NEGATIVE Urine Blood LARGE H Urine Nitrite NEGATIVE Ur Leukocyte Esterase TRACE H Blood Type O POSITIVE Antibody Screen NEGATIVE Assessment and Plan(PN) - Assessment and Plan (1) Active labor at term Is this a current diagnosis for this admission?: Yes (2) Carrier or suspected carrier of group B Streptococcus Is this a current diagnosis for this admission?: Yes (3) Precipitous delivery, delivered (current hospitalization) Is this a current diagnosis for this admission?: Yes - Time Spent with Patient Time with patient: Less than 15 minutes Medications reviewed and adjusted accordingly: Yes - Disposition Anticipated Discharge: Home Within: within 24 hours
[2019-03-12] MEDS: IBUPROFEN 800 MG TABLET PO SCH (05:23)
[2019-03-12 07:58] VITALS: BP 131/90
--- NOTE | 2019-03-12 09:08 | PDOC DISCHARGE SUMMARY ---
Impression - Admit/DC Date/PCP Admission Date/Primary Care Provider: 03/10/19 09:04 ALEKSANDR WEST MD Discharge Date: 03/12/19 - PP Day #2, doing well, no complaints, noted elevated BP since delivering, O+, Rubella Immune - Discharge Diagnosis (1) Active labor at term Is this a current diagnosis for this admission?: Yes (2) Carrier or suspected carrier of group B Streptococcus Is this a current diagnosis for this admission?: Yes (3) Precipitous delivery, delivered (current hospitalization) Is this a current diagnosis for this admission?: Yes - Additional Information Resuscitation Status: Full Code Discharge Diet: As Tolerated, Regular Discharge Activity: Activity As Tolerated, No Lifting Over 10 Pounds, Pelvic Rest Referrals: ALEKSANDR WEST MD [Primary Care Provider] - Prescriptions: Ibuprofen [Motrin 800 mg Tablet] 800 mg PO Q8 #60 tablet Home Medications: Vit,Calc76/Iron/Folic [Pnv 29-1 Tablet] 1 tab PO DAILY 03/24/17 Ferrous Sulfate [Feosol 325 mg Tablet] 325 mg PO BID tablet 03/12/19 Glycerin/Witch [place] [Tucks Take-Alongs Wipe] 1 each TP DAILYP PRN #0 med..pad 03/12/19 Ibuprofen [Motrin 800 mg Tablet] 800 mg PO Q8 #60 tablet 03/12/19 HPI Reason(s) for Admission: Onset of Labor Procedures: Ultrasound Intrapartum Procedure(s): Spontaneous Vaginal Delivery Hospital Course Hospital Course: routine Results Laboratory Results: WBC 12.8 10^3/uL (4.0-10.5) H 03/11/19 06:01 RBC 3.78 10^6/uL (3.72-5.28) 03/11/19 06:01 Hgb 9.4 g/dL (12.0-15.5) L 03/11/19 06:01 Hct 28.7 % (36.0-47.0) L 03/11/19 06:01 MCV 76 fl (80-97) L 03/11/19 06:01 MCH 25.0 pg (27.0-33.4) L 03/11/19 06:01 MCHC 32.9 g/dL (32.0-36.0) 03/11/19 06:01 RDW 16.5 % (11.5-14.0) H 03/11/19 06:01 Plt Count 231 10^3/uL (150-450) 03/11/19 06:01 Lymph % (Auto) 11.5 % (13-45) L 03/10/19 09:30 [place] % (Auto) 3.9 % (3-13) 03/10/19 09:30 Eos % (Auto) 0.2 % (0-6) 03/10/19 09:30 Baso % (Auto) 0.3 % (0-2) 03/10/19 09:30 Absolute Neuts (auto) 12.5 10^3/uL (1.7-8.2) H 03/10/19 09:30 Absolute Lymphs (auto) 1.7 10^3/uL (0.5-4.7) 03/10/19 09:30 Absolute Monos (auto) 0.6 10^3/uL (0.1-1.4) 03/10/19 09:30 Absolute Eos (auto) 0.0 10^3/uL (0.0-0.6) 03/10/19 09:30 Absolute Basos (auto) 0.0 10^3/uL (0.0-0.2) 03/10/19 09:30 Seg Neutrophils % 84.1 % (42-78) H 03/10/19 09:30 Urine Color STRAW 03/10/19 17:30 Urine Appearance CLEAR 03/10/19 17:30 Urine pH 7.0 (5.0-9.0) 03/10/19 17:30 Ur Specific [place] 1.002 03/10/19 17:30 Urine Protein NEGATIVE mg/dL (NEGATIVE) 03/10/19 17:30 Urine Glucose (UA) NEGATIVE mg/dL (NEGATIVE) 03/10/19 17:30 Urine Ketones NEGATIVE mg/dL (NEGATIVE) 03/10/19 17:30 Urine Blood LARGE (NEGATIVE) H 03/10/19 17:30 Urine Nitrite NEGATIVE (NEGATIVE) 03/10/19 17:30 Urine Bilirubin NEGATIVE (NEGATIVE) 03/10/19 17:30 Urine Urobilinogen NEGATIVE mg/dL (<2.0) 03/10/19 17:30 Ur Leukocyte Esterase TRACE (NEGATIVE) H 03/10/19 17:30 Urine Ascorbic Acid NEGATIVE (NEGATIVE) 03/10/19 17:30 Urine Opiates Screen NEGATIVE 03/10/19 17:30 Urine Methadone Screen NEGATIVE 03/10/19 17:30 Ur Barbiturates Screen NEGATIVE 03/10/19 17:30 Ur Phencyclidine Scrn NEGATIVE 03/10/19 17:30 Ur Amphetamines Screen NEGATIVE 03/10/19 17:30 U Benzodiazepines Scrn NEGATIVE 03/10/19 17:30 Urine Cocaine Screen NEGATIVE 03/10/19 17:30 U Marijuana (THC) Screen NEGATIVE 03/10/19 17:30 RPR NONREACTIVE (NONREACTIVE) 03/10/19 09:30 Blood Type O POSITIVE 03/10/19 09:30 Antibody Screen NEGATIVE 03/10/19 09:30 Plan Health Concerns: watch PP BP Plan of Treatment: d/c to home, f/u with [facility] in one week for a BP check. Time Spent: Less than 30 Minutes
[2019-03-12] MEDS: SENNOSIDES/DOCUSATE 8.6-50 MG 1 EACH TABLET PO SCH (10:00)
[2019-03-12] MEDS: PRENATAL VITAMIN W DHA CAPSULE PO SCH (10:00)
[2019-03-12] MEDS: FAMOTIDINE 20 MG TABLET PO SCH (10:00)
[2019-03-12] MEDS: FERROUS SULFATE 325 MG TABLET PO SCH (10:00)
[2019-03-12] MEDS: DOCUSATE SODIUM 100 MG CAPSULE PO SCH (10:00)
--- NOTE | 2019-03-19 09:32 | Delivery Summary ---
Del Sum A-C Datetime Report Generated by CPN: 03/19/2019 09:31 DELIVERY PERSONNEL DELIVERY PERSONNEL: [id number] Delivery Doctor:: Mahsa German MD Anesthesiologist:: Lanie Ram MD Labor and Delivery Nurse:: Nata Trujillo RNfarm truck driver Nurse:: Leanna Perez RN Metallurgical Analyst/VEGETABLE I FARMWORKER: Tiffanie Green, ST MATERNAL INFORMATION Delivery Anesthesia: Epidural Medications After Delivery: Pitocin Bolus-Please Comment Meds After Delivery Comment: Pitocin 20 units in 1000mL NS Delivery QBL: 200 Maternal Complications: None Provider Comments: VMI delivered in GELACIO presentation. loose nuchal cord delivered through. Shoulders and body delivered without diffculty. cord doubly clamped and cut and to maternal abdomen for NRP. Placenta delivered intact spontaneously. FF at U. Small hemostatic periurethral laceration - no repair needed. Good hemostasis. Mother and baby stable upon provider leaving the room LABOR SUMMARY EDC: 03/06/2019 00:00 No. Babies in Womb: 1 Attempted: No Labor Anesthesia: Epidural LABOR INFORMATION Reason for Induction: Not Applicable Onset of Labor: 03/10/2019 06:30 Complete Dilatation: 03/10/2019 10:19 Complete Dilatation: 03/10/2019 10:19 Oxytocin: N/A Group B Beta Strep: positive Antibiotics # of Doses: 1 Antibiotics Time of Last Dose: 920 Name of Antibiotic Given: penicillin Steroids Given: None Reason Steroids Not Administered: Not Applicable MEMBRANES Membranes Rupture Method: Spontaneous Rupture of Membranes: 03/10/2019 10:19 Length of Rupture (hr): 0.32 Amniotic Fluid Color: Clear Amniotic Fluid Amount: Large Amniotic Fluid Odor: None STAGES OF LABOR Stage 1 hr: 3 Stage 1 min: 49 Stage 2 hr: 0 Stage 2 min: 19 Stage 3 hr: 0 Stage 3 min: 4 Total Time in Labor hr: 4 Total Time in Labor min: 12 VAGINAL DELIVERY Episiotomy: None Laceration #1: None Laceration Extension #1: N/A Laceration Repair: Not Applicable Sponge Count Correct: Yes Sharps Count Correct: Yes CSECTION DELIVERY Primary Indication: N/A Secondary Indication: N/A CSection Incidence: N/A Labor: N/A Elective: N/A CSection Incision: N/A BABY A INFORMATION Infant Delivery Date/Time: 03/10/2019 10:38 Method of Delivery: Vaginal Method of Delivery: Vaginal Born in Route : No : N/A Forceps: N/A Vacuum Extraction: N/A Shoulder Dystocia : No PRESENTATION/POSITION BABY A Presentation: Cephalic Cephalic Presentation: Vertex Vertex Position: Right Occipital Anterior Breech Presentation: N/A PLACENTA INFORMATION BABY A Placenta Delivery Time : 03/10/2019 10:42 Placenta Method of Delivery: Spontaneous Placenta Method of Delivery: Spontaneous Placenta Status: Delivered SCORES BABY A Heart Rate 1 min: >100 bpm Resp Effort 1 min: Good Cry Reflex Irritability 1 min: Cough or Sneeze or Pulls Away Muscle Tone 1 min: Active Motion Color 1 min: Blue/Pale Resuscitation Effort 1 min: Tactile Stimulation SCORE 1 MIN: 8 Heart Rate 5 min: >100 bpm Resp Effort 5 min: Good Cry Reflex Irritability 5 min: Cough or Sneeze or Pulls Away Muscle Tone 5 min: Active Motion Color 5 min: Body [place], Extremities Blue Resuscitation Effort 5 min: N/A SCORE 5 MIN: 9 INFANT INFORMATION BABY A Gestational Age at Delivery: 40.4 Gestational Status: Full Term- 39- 40.6 Weeks Outcome : Liveborn Condition : Stable Infant Sex: Male Infant Sex: Male Sex: Male IDENTIFICATION BABY A Verification Date/Time: 03/10/2019 10:56 ID Band Number: [id number] Mother's Name Verified: Yes RN Verifying Infant: M. Ronnie RN, H. Chris RN WEIGHT/LENGTH BABY A Birthweight (gm): 3390 Infant Weight (lb): 7 Weight (oz): 8 Infant Length (in): 20.00 Infant Length (cm): 50.80 CORD INFORMATION BABY A No. Cord Vessels: 3 Nuchal Cord : N/A Cord Blood Taken: Yes-For Eval (Mom's Blood Type - or O+) Infant Suction: None ASSESSMENT BABY A Infant Complications: None Physical Findings at Delivery: Within Normal Limits Respirations: Appears Normal Parts Processor/ALS Called : No Care By: H. Chris RN Transferred To: Remains with Mother BABY B INFORMATION : N/A SIGNATURES Signature: with User ID: [email or web address]
--- NOTE | 2019-03-23 10:31 | Admission Physical ---
Datetime Report Generated by CPN: 03/23/2019 10:31 CURRENT ADMISSION Chief Complaint: Uterine Contractions Indication for Induction: Not Applicable Admit Impression : Term, Intrauterine Admit Plan: Admit to Unit ALLERGIES Medication Allergies: No Medication Allergies: No Known Allergies (03/24/2017) Latex: No Latex Allergies OBSTETRICAL HISTORY EDC: 03/06/2019 00:00 : 2 Para: 1 Term: 1 : 0 SAB: 0 IAB: 0 Ectopic: 0 Livin Cesareans: 0 VBACs: 0 Multiple Births: 0 Gestational Diabetes: No Rh Sensitization: No Incompetent Cervix: No JAMIE: No Infertility: No ART Treatment: No Uterine Anomaly: No IUGR: No Hx Previous C/S: No Macrosomia: No Hx Loss/Stillborn: No PIH: No Hx : No Placenta Previa/Abruption: No Depression/PP Depression: No PTL/PROM: No Post Hemorrhage: No Obstetrical History Comments: G1: 2018, 39 wks, 8lbs 10 oz vaginal male G2: current SEE RECORDS Alcohol: No Marijuana : No Cocaine: No Other Illicit Drugs: No Cigarettes: Never Smoker. 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 Surgery: No Heart Disease: No Hosp/Surgery: Yes Autoimmune Disorder: No Anesthetic Complications: No Kidney Disease: No Abnormal Pap Smear: No Neuro/Epilepsy: No Psychiatric Disorders: No Other Medical Diseases: No Hepatitis/Liver Disease: No Significant Family History: No Varicosities/Phlebitis: No Trauma/Violence : No Thyroid Dysfunction: No Medical History Comments: tonsillectomy, wisdom teeth removal INFECTIOUS HISTORY Gonorrhea: No Genital Herpes: No Chlamydia: No Tuberculosis: No Syphilis: No Hepatitis: No HIV/AIDS Exposure: No Rash or Viral Illness: No HPV: No PHYSICAL EXAM General: Normal HEENT: Normal Neurologic: Normal Thyroid: Deferred Heart: Normal Lungs: Normal Breast: Deferred Back: Normal Abdomen: Normal Genitourinary Exam: Normal Extremities: Normal DTRs: Normal Pelvic Type: Adequate Vital Signs: Reviewed VAGINAL EXAM Dilatation: 3 Effacement: 80 Station: -1 Contraction Comments: regular MEMBRANES Membranes: Intact FETUS A Monitoring: External US FHR- Baseline: 140 Variability: Moderate 6-25bpm Accelerations: 15X15 Decelerations: None FHR Category: Category I Presentation: Vertex Admit Comment: 23yo at 40+4ega presents for active labor and noted cervical change. Admit for labor. Anticiapte . PCN for GBS prophy. Anticiapte . AROM when PCN next dose due. Pelvis Adequate for MARJORIE PLANS FOR LABOR AND DELIVERY Labor and Delivery: None Pain Management: Epidural Feeding Preference: Breast Benefit of Breast Feed Discussed: Yes Circumcision: No INFORMED CONSENT Informed Consent Obtained: Vaginal Delivery; Risks, Benefits and Alternatives Discussed Signature: with User ID: [email or web address]
== END 2019-03-12 12:15 | disposition home or self-care (01) | DRG 807 ==
LOC: LC 07:25 → LR 09:04 → 2S 12:49
PROVIDERS: ADMIT Student in an Organized Health Care Education/Training Program; ATTEND Student in an Organized Health Care Education/Training Program
PROC: 10E0XZZ Delivery of Products of Conception, External Approach (ICD-10-PCS; principal; 2019-03-10)
DX: O99.824 Streptococcus B carrier state complicating childbirth (principal); Z37.0 Single live birth; O62.3 Precipitate labor; O69.81X0 Labor and delivery complicated by cord around neck, without compression, not applicable or unspecified; Z3A.40 40 weeks gestation of pregnancy
CPT/HCPCS: 36415; 80307; 81005; 85025; 85027; 86592; 86850; 86900; 86901; 94760; J2540; J2590; J3010; J3490